=== PATIENT | female | born 1950 | race Caucasian/White ===

== ENCOUNTER 2016-10-31 12:53 | Outpatient (CLI) | payer OTHER, MEDICARE | END 2016-10-31 19:36 | disposition home or self-care (01) | LOC: SCT 12:53 | PROVIDERS: ATTEND Internal Medicine Hospice and Palliative Medicine | DX: J44.9 Chronic obstructive pulmonary disease, unspecified (principal); I25.10 Atherosclerotic heart disease of native coronary artery without angina pectoris | CPT/HCPCS: 71250-TC ==

== ENCOUNTER 2017-09-14 10:01 | Outpatient (CLI) | payer OTHER, MEDICARE ==
[2017-09-14 10:42] LABS: BASOPHILS # (AUTO) 0.1 K/uL (0.0-0.2); BASOPHILS % (AUTO) 0.5 % (0.0-2.0); EOSINOPHILS # (AUTO) 0.1 K/uL (0.0-0.4); EOSINOPHILS % (AUTO) 1.4 % (0.0-4.0); HEMATOCRIT 41.4 % (36-48); HEMOGLOBIN 13.4 g/dL (12.0-16.0); LYMPHOCYTES % (AUTO) 29.3 % (20.5-51.5); MEAN CORPUSCULAR HEMOGLOBIN 29 pg (27-31); MEAN CORPUSCULAR HGB CONC 32 % (32-36); MEAN CORPUSCULAR VOLUME 91 fL (79.0-98.0); MONOCYTES # (AUTO) 0.9 K/uL (0.0-1.0); MONOCYTES % (AUTO) 9.1 % (1.7-9.3); NEUTROPHILS # (AUTO) 6.3 K/uL (1.8-7.7); NEUTROPHILS % (AUTO) 59.7 % (40.0-70.0); PLATELET COUNT (AUTO) 379 K/uL (130-430); RED BLOOD CELL COUNT(AUTO) 4.55 MIL/uL (4.2-6.2); WHITE BLOOD COUNT (AUTO) 10.4 K/uL (4.8-10.8)
[2017-09-14 11:17] LABS: BILIRUBIN,URINE NEGATIVE (NEGATIVE); CALCIUM 10.1 mg/dL (8.4-11.0); CLARITY/URINE CLOUDY (CLEAR); COLOR,URINE YELLOW (YELLOW); CREATININE 0.87 mg/dL (0.55-1.30); GLUCOSE,URINE NEGATIVE (NEGATIVE); KETONES,URINE NEGATIVE (NEGATIVE); LEUKOCYTE ESTERASE ,URINE 3+ (NEGATIVE); NITRITE, URINE POSITIVE (NEGATIVE); PH,URINE 5.5 (5.0-8.0); POTASSIUM 4.6 mmol/L (3.5-5.1); PROTEIN URINE NEGATIVE (NEGATIVE); THYROID STIMULATING HORMONE 1.62 uIu/mL (0.34-4.82); TOTAL BILIRUBIN 0.5 mg/dL (0.0-1.0); UROBILINOGEN,URINE 0.2 (0.2-1.0)
[2017-09-14 11:18] LABS: BLOOD, URINE TRACE (NEGATIVE)
[2017-09-14 12:05] LABS: RBC,URINE 0-3 /HPF (0-3)
[2017-09-14 12:06] LABS: WBC,URINE >100 /HPF (0-3)
[2017-09-14 12:07] LABS: BACTERIA,URINE MANY /HPF (None Seen); MUCUS,URINE None Seen /LPF (None Seen)
== END 2017-09-14 20:24 | disposition home or self-care (01) ==
LOC: SLB 10:01
PROVIDERS: ATTEND Internal Medicine Hospice and Palliative Medicine
DX: I10 Essential (primary) hypertension (principal); E11.9 Type 2 diabetes mellitus without complications; R53.83 Other fatigue
CPT/HCPCS: 36415; 80053; 80061; 81000-TC; 84443-TC; 85025; 87086; 87186-TC

== ENCOUNTER 2018-04-09 07:33 | Day surgery (SDC) | payer OTHER, MEDICARE ==
[2018-04-09] MEDS ORDERED: MEPERIDINE HCL/PF 100 MG/ML AMP ONE (07:49)
[2018-04-09] MEDS: MIDAZOLAM HCL 5 MG/5 ML VIAL ONE ×4 (09:13→09:26)
[2018-04-09 13:22] VITALS: BP_SYST 157
== END 2018-04-09 10:45 | disposition home or self-care (01) ==
LOC: SDS 07:33
PROVIDERS: ATTEND Internal Medicine Gastroenterology
DX: D12.5 Benign neoplasm of sigmoid colon (principal); D12.3 Benign neoplasm of transverse colon; K57.30 Diverticulosis of large intestine without perforation or abscess without bleeding; K64.8 Other hemorrhoids; E11.42 Type 2 diabetes mellitus with diabetic polyneuropathy; Z90.710 Acquired absence of both cervix and uterus; Z90.49 Acquired absence of other specified parts of digestive tract; Z98.890 Other specified postprocedural states; Z79.84 Long term (current) use of oral hypoglycemic drugs; Z79.899 Other long term (current) drug therapy; Z88.8 Allergy status to other drugs, medicaments and biological substances
CPT/HCPCS: 45380; 45385; 88305; J2175; J2250; 45384

== ENCOUNTER 2018-06-24 09:14 | Outpatient (CLI) | payer OTHER, MEDICARE ==
[2018-06-24 10:21] LABS: BASOPHILS % (AUTO) 0.2 % (0.0-2.0); EOSINOPHILS # (AUTO) 0.2 K/uL (0.0-0.4); EOSINOPHILS % (AUTO) 1.2 % (0.0-4.0); HEMATOCRIT 42.8 % (36-48); LYMPHOCYTES # (AUTO) 2.3 K/uL (1.0-5.5); LYMPHOCYTES % (AUTO) 16.9 % (20.5-51.5); MEAN CORPUSCULAR HEMOGLOBIN 29 pg (27-31); MEAN CORPUSCULAR HGB CONC 33 % (32-36); MEAN CORPUSCULAR VOLUME 89 fL (79.0-98.0); MONOCYTES # (AUTO) 0.9 K/uL (0.0-1.0); MONOCYTES % (AUTO) 6.9 % (1.7-9.3); NEUTROPHILS # (AUTO) 10.2 K/uL (1.8-7.7); NEUTROPHILS % (AUTO) 74.8 % (40.0-70.0); PLATELET COUNT (AUTO) 566 K/uL (130-430); RED CELL DISTRIBUTION WIDTH 12.4 % (9.0-15.0); WHITE BLOOD COUNT (AUTO) 13.6 K/uL (4.8-10.8)
[2018-06-24 10:51] LABS: CALCIUM 10.6 mg/dL (8.4-11.0); CREATININE 0.87 mg/dL (0.55-1.30); POTASSIUM 4.4 mmol/L (3.5-5.1)
[2018-06-24 11:06] LABS: ALBUMIN 3.8 g/dL (3.4-4.8); THYROID STIMULATING HORMONE 1.95 uIu/mL (0.36-3.74); TOTAL BILIRUBIN 0.4 mg/dL (0.0-1.0)
== END 2018-06-24 18:24 | disposition home or self-care (01) ==
LOC: SLB 09:14
PROVIDERS: ATTEND Internal Medicine Hospice and Palliative Medicine
DX: J44.9 Chronic obstructive pulmonary disease, unspecified (principal); E11.9 Type 2 diabetes mellitus without complications
CPT/HCPCS: 36415; 80053; 80061; 83036; 84443-TC; 85025

== ENCOUNTER 2019-03-18 07:50 | Emergency (ER) | payer OTHER, MEDICARE ==
[~2019-03-18] VITALS: Ht 165.1 cm; Wt 74.8 kg
[2019-03-18 07:50] VITALS: BP_SYST 120
[2019-03-18] MEDS ORDERED: KETOROLAC TROMETHAMINE 30 MG VIAL IM ONE (08:15)
[2019-03-18] MEDS ORDERED: HYDROcodone/ACETAMIN 5-325 MG TAB (NORCO/ VICODIN) PO ONE (09:15)
[2019-03-18] MEDS ORDERED: NACL 0.9% 1,000 ML IV ONE (09:45)
[2019-03-18 09:55] LABS: BASOPHILS # (AUTO) 0.1 K/uL (0.0-0.2); BASOPHILS % (AUTO) 0.5 % (0.0-2.0); EOSINOPHILS # (AUTO) 0.3 K/uL (0.0-0.4); EOSINOPHILS % (AUTO) 2.3 % (0.0-4.0); HEMATOCRIT 33.5 % (36-48); HEMOGLOBIN 11.1 g/dL (12.0-16.0); LYMPHOCYTES # (AUTO) 2.2 K/uL (1.0-5.5); LYMPHOCYTES % (AUTO) 19.2 % (20.5-51.5); MEAN CORPUSCULAR HEMOGLOBIN 30 pg (27-31); MEAN CORPUSCULAR HGB CONC 33 % (32-36); MEAN CORPUSCULAR VOLUME 89 fL (79.0-98.0); MONOCYTES # (AUTO) 0.9 K/uL (0.0-1.0); MONOCYTES % (AUTO) 7.9 % (1.7-9.3); NEUTROPHILS % (AUTO) 70.1 % (40.0-70.0); PLATELET COUNT (AUTO) 422 K/uL (130-430); RED BLOOD CELL COUNT(AUTO) 3.75 MIL/uL (4.2-6.2); RED CELL DISTRIBUTION WIDTH 14.3 % (9.0-15.0); WHITE BLOOD COUNT (AUTO) 11.4 K/uL (4.8-10.8)
[2019-03-18 10:05] LABS: CALCIUM 10.9 mg/dL (8.4-11.0); CREATININE 0.86 mg/dL (0.55-1.30); POTASSIUM 4.9 mmol/L (3.5-5.1)
[2019-03-18 10:11] LABS: ALBUMIN 3.3 g/dL (3.4-4.8); TOTAL BILIRUBIN 0.3 mg/dL (0.0-1.0)
[2019-03-18] MEDS ORDERED: IOHEXOL 100 ML IV ONE (10:51)
[2019-03-18] MEDS ORDERED: DOXYCYCLINE HYCLATE 100 MG CAPSULE PO ONE (13:00)
[2019-03-18 13:17] VITALS: BP_SYST 138
== END 2019-03-18 13:17 | disposition home or self-care (01) ==
LOC: SED 07:50
DX: S22.068A Other fracture of T7-T8 thoracic vertebra, initial encounter for closed fracture (principal); S22.088A Other fracture of T11-T12 vertebra, initial encounter for closed fracture; S20.211A Contusion of right front wall of thorax, initial encounter; J18.9 Pneumonia, unspecified organism; R91.8 Other nonspecific abnormal finding of lung field; M19.90 Unspecified osteoarthritis, unspecified site; Z88.1 Allergy status to other antibiotic agents; Z88.8 Allergy status to other drugs, medicaments and biological substances; Z87.891 Personal history of nicotine dependence; W01.0XXA Fall on same level from slipping, tripping and stumbling without subsequent striking against object, initial encounter; Y93.89 Activity, other specified; Y92.89 Other specified places as the place of occurrence of the external cause; Y99.8 Other external cause status
CPT/HCPCS: 36415; 71100; 71260; 80053; 83605; 85025; 87040; 87086; 96372; 99284; J1885; J7030; Q9967

== ENCOUNTER 2019-04-19 13:56 | Inpatient (IN) | payer OTHER, MEDICARE ==
[~2019-04-19] VITALS: Ht 165.1 cm; Wt 73.9 kg
--- NOTE | 2019-04-19 13:59 | NUR ---
Patient to ER bed 1 to gown for evaluation. Side rails up. Report given to CARMELITA Su.
--- NOTE | 2019-04-19 14:00 | NUR ---
ER Dr. Warner at bedside examining patient.
[2019-04-19 14:02] VITALS: BP_SYST 184
[2019-04-19] MEDS ORDERED: NS 500 ML IV ONE (14:15)
[2019-04-19] MEDS ORDERED: ONDANSETRON HCL 4 MG/2 ML VIAL IVP ONE (14:15)
[2019-04-19 14:33] LABS: BASOPHILS # (AUTO) 0.1 K/uL (0.0-0.2); BASOPHILS % (AUTO) 0.4 % (0.0-2.0); EOSINOPHILS % (AUTO) 0.1 % (0.0-4.0); HEMATOCRIT 41.1 % (36-48); HEMOGLOBIN 13.7 g/dL (12.0-16.0); LYMPHOCYTES # (AUTO) 0.9 K/uL (1.0-5.5); LYMPHOCYTES % (AUTO) 5.5 % (20.5-51.5); MEAN CORPUSCULAR HEMOGLOBIN 30 pg (27-31); MEAN CORPUSCULAR HGB CONC 33 % (32-36); MEAN CORPUSCULAR VOLUME 89 fL (79.0-98.0); MONOCYTES # (AUTO) 0.4 K/uL (0.0-1.0); MONOCYTES % (AUTO) 2.6 % (1.7-9.3); NEUTROPHILS # (AUTO) 14.8 K/uL (1.8-7.7); NEUTROPHILS % (AUTO) 91.4 % (40.0-70.0); PLATELET COUNT (AUTO) 573 K/uL (130-430); RED CELL DISTRIBUTION WIDTH 14.7 % (9.0-15.0); WHITE BLOOD COUNT (AUTO) 16.2 K/uL (4.8-10.8)
[2019-04-19 14:46] LABS: CREATININE 0.88 mg/dL (0.55-1.30); POTASSIUM 3.7 mmol/L (3.5-5.1)
[2019-04-19 14:47] LABS: INR 1.1 (0.8-1.2); PROTHROMBIN TIME 10.7 SECS (9.5-12.5)
[2019-04-19 14:54] LABS: CALCIUM 12.9 mg/dL (8.4-11.0)
[2019-04-19 14:58] LABS: ALBUMIN 3.7 g/dL (3.4-4.8); TOTAL BILIRUBIN 0.5 mg/dL (0.0-1.0)
--- NOTE | 2019-04-19 15:12 | NUR ---
Patient A&Ox4. at bedside. Patient reports bilateral weakness started March 22 and continues to get worse. Patient reports she was diagnosed with lung cancer March 22. Patient has profound bilateral weakness and was not able to walk to bed.
[2019-04-19] MEDS ORDERED: VANCOMYCIN HCL 1,000 MG in D5W 250 ML IV ONE (15:45)
[2019-04-19] MEDS ORDERED: NACL 0.9% 2,000 ML IV ONE (15:45)
[2019-04-19] MEDS ORDERED: VANCOMYCIN HCL 1000 MG/VIAL IV ONE (16:09)
[2019-04-19] MEDS ORDERED: MORP30TA PO (16:25)
[2019-04-19] MEDS ORDERED: VITA1CAP PO (16:25)
[2019-04-19] MEDS ORDERED: GLUXR500 PO ×2 (16:25)
[2019-04-19] MEDS ORDERED: INSU100V9 SQ (16:25)
[2019-04-19] MEDS ORDERED: LIP10 PO (16:25)
[2019-04-19] MEDS ORDERED: NEU300 PO (16:25)
[2019-04-19] MEDS ORDERED: LISI5TAB PO (16:25)
[2019-04-19] MEDS ORDERED: ZOLP10TA2 PO (16:25)
[2019-04-19] MEDS ORDERED: HYDR-4274 PO ×3 (16:25)
[2019-04-19] MEDS ORDERED: BEN50 PO (16:25)
[2019-04-19] MEDS ORDERED: PARO-63 PO (16:25)
--- NOTE | 2019-04-19 16:25 | NUR ---
Medication reconciliation completed with information provided by . Any prior medication reconciliation on file was reviewed and corrected.
[2019-04-19 16:58] LABS: BILIRUBIN,URINE NEGATIVE (NEGATIVE); CLARITY/URINE CLEAR (CLEAR); COLOR,URINE YELLOW (YELLOW); GLUCOSE,URINE TRACE (NEGATIVE); KETONES,URINE 2+ (NEGATIVE); LEUKOCYTE ESTERASE ,URINE NEGATIVE (NEGATIVE); NITRITE, URINE NEGATIVE (NEGATIVE); PROTEIN URINE 2+ (NEGATIVE); UROBILINOGEN,URINE 0.2 (0.2-1.0)
[2019-04-19] MEDS ORDERED: ASPIRIN 325 MG TABLET PO ONE (17:00)
[2019-04-19 17:07] LABS: BLOOD, URINE TRACE (NEGATIVE)
[2019-04-19 17:15] LABS: BACTERIA,URINE FEW /HPF (None Seen); MUCUS,URINE None Seen /LPF (None Seen); WBC,URINE 0-3 /HPF (0-3)
--- NOTE | 2019-04-19 17:59 | NUR ---
Patient will be admitted to care of Dr. Cortes. Admitted to telemetry unit. Will go to room 119A. Belongings list completed. Summary report printed. Report will be given at bedside.
--- NOTE | 2019-04-19 18:05 | NUR ---
Dr. Warner made aware of patient vital signs.
[2019-04-19] MEDS ORDERED: ZOLPIDEM TARTRATE 5 MG TABLET PO PRN (18:15)
--- NOTE | 2019-04-19 18:20 | NUR ---
[facility] Licensed nurse present. IV present no signs or symptoms of infiltration. Bedside report given to CARMELITA Salvador for continuation of care.
--- NOTE | 2019-04-19 18:23 | NUR ---
Admission Note Received patient from ER with diagnosis of SEPSIS PNA. Initial Plan of Care discussed-patient verbalized understanding. Family at bedside. Oriented to room, call light, pain management and safety.
[2019-04-19 18:30] VITALS: BP_SYST 157
[2019-04-19] MEDS ORDERED: DEXTROSE 50% JECT 50 ML DISP.SYRIN IVP PRN (18:30)
[2019-04-19] MEDS ORDERED: IPRATROPIUM/ALBUTEROL SULFATE 3 ML AMPUL.NEB (DUONEB) INH PRN (18:30)
[2019-04-19 19:05] VITALS: BP_SYST 157
--- NOTE | 2019-04-19 19:10 | NUR ---
CLOSING NOTES PT STABLE DENIES ANY PAIN OR SOB AT THIS TIME. PT CLEANED AND KEPT COMFORTABLE. SAFETY AND FALL PRECAUTIONS MAINATINED.NOT IN ACUTE DISTRESS. REPORT GIVEN TO EUGENE MAE
[2019-04-19] MEDS ORDERED: AZTREONAM 1 GM in NS 50 ML IV ONE ×2 (19:15→20:00)
[2019-04-19 20:00] VITALS: BP_SYST 158
--- NOTE | 2019-04-19 20:00 | NUR ---
MD Dr. Cortes at patient's bedside, new orders received, will carry out. Patient updated on plan of care, verbalized understanding.
[2019-04-19] MEDS: IPRATROPIUM/ALBUTEROL SULFATE 3 ML AMPUL.NEB (DUONEB) INH SCH (20:03)
[2019-04-19] MEDS: NACL 0.9% 1,000 ML IV SCH (20:26)
[2019-04-19] MEDS: POTASSIUM CHLORIDE 10 MEQ TAB.PRT.SR PO SCH (20:27)
[2019-04-19] MEDS: FUROSEMIDE 20 MG/2 ML VIAL IVP SCH (20:27)
--- NOTE | 2019-04-19 20:29 | NUR ---
CONSULT: CONSULT CALLED FOR DR. SNEHA NOGUEIRA CLEARING HOUSE CLERK FOR DR. HOOVER I SPOKE WITH DIANA EXCHANGE REASON FOR CONSULT" LUNG MASS REQUESTING CONSULT: DR. MILLER FERMENTATION ENGINEER PHONE NUMBER: [phone]
[2019-04-19] MEDS ORDERED: AZTREONAM 1 GM VIAL ONE (20:32)
--- NOTE | 2019-04-19 20:33 | NUR ---
CONSULT: CONSULT CALLED FOR DR. CURRAN I SPOKE WITH DIANA GUERIN REASON FOR CONSULT: PNA REQUESTING CONSULT: DR. MILLER CRYSTAL CALIBRATOR PHONE NUMBER: [phone]
--- NOTE | 2019-04-19 20:34 | NUR ---
CONSULT: CONSULT CALLED FOR DR. GERRY TSANG IS ELECTRONIC PAGINATION SYSTEM OPERATOR FOR DR. REYES REASON FOR CONSULT: CANCER REQUESTING CONSULT: DR. MILLER SENIOR ORACLE SOA DEVELOPER PHONE NUMBER: [phone]
--- NOTE | 2019-04-19 21:03 | NUR ---
MED PASS Patient started on IVF and antibiotics per MD order, IV line to left ac intact and patent, no signs of infiltration noted, due medications administered, educated on used of each medications, patient verbalized understanding, aspiration precautions maintained, blood sugar check, 195, no insulin coverage noted.
[2019-04-20] VITALS: BP_SYST 154
--- NOTE | 2019-04-20 00:49 | NUR ---
RN Rounds Pt in bed asleep, no s/s of distress noted. Breaths sounds even and unlabored. Pt turned and repositioned. VSS. Will continue to monitor.
[2019-04-20] MEDS: IPRATROPIUM/ALBUTEROL SULFATE 3 ML AMPUL.NEB (DUONEB) INH SCH ×4 (00:58→19:30)
--- NOTE | 2019-04-20 03:02 | NUR ---
RN Rounds Pt in bed asleep, no s/s of distress noted. Breaths sounds even and unlabored. Will continue to monitor.
[2019-04-20] MEDS: AZTREONAM 1 GM in NS 50 ML IV SCH ×3 (03:13→20:48)
[2019-04-20] MEDS: NACL 0.9% 1,000 ML IV SCH ×3 (06:02→21:57)
--- NOTE | 2019-04-20 06:19 | NUR ---
Closing Note Pt in bed asleep. No s/s of distress noted. Pt IV sites C/D/I. IVF infusing. Skin intact. BS check done, no coverage needed. Will endorse to oncoming RN.
[2019-04-20 06:54] LABS: BASOPHILS % (AUTO) 0.3 % (0.0-2.0); EOSINOPHILS % (AUTO) 0.3 % (0.0-4.0); HEMATOCRIT 34.3 % (36-48); HEMOGLOBIN 11.5 g/dL (12.0-16.0); LYMPHOCYTES # (AUTO) 1.8 K/uL (1.0-5.5); LYMPHOCYTES % (AUTO) 12.6 % (20.5-51.5); MEAN CORPUSCULAR HEMOGLOBIN 30 pg (27-31); MEAN CORPUSCULAR HGB CONC 33 % (32-36); MEAN CORPUSCULAR VOLUME 89 fL (79.0-98.0); MONOCYTES # (AUTO) 1.3 K/uL (0.0-1.0); MONOCYTES % (AUTO) 9.2 % (1.7-9.3); NEUTROPHILS % (AUTO) 77.6 % (40.0-70.0); PLATELET COUNT (AUTO) 484 K/uL (130-430); RED BLOOD CELL COUNT(AUTO) 3.84 MIL/uL (4.2-6.2); RED CELL DISTRIBUTION WIDTH 14.8 % (9.0-15.0); WHITE BLOOD COUNT (AUTO) 14.2 K/uL (4.8-10.8)
[2019-04-20 07:20] LABS: ALBUMIN 2.9 g/dL (3.4-4.8); CALCIUM 10.2 mg/dL (8.4-11.0); CREATININE 0.85 mg/dL (0.55-1.30); FREE T4 (FREE THYROXINE) 1.1 ng/dl (0.8-1.5); POTASSIUM 3.4 mmol/L (3.5-5.1); TOTAL BILIRUBIN 0.3 mg/dL (0.0-1.0)
--- NOTE | 2019-04-20 07:36 | NUR ---
Opening Note bedside SBAR report received from electric motor tester RN, patient resting in bed, no acute distress noted, respirations even and unlabored on room air, no acute distress noted, patient reports pain is controlled, educated patient on use of call light and asked to call for assistance, patient verbalized understanding, call light in reach, bed in low and locked position, bed alarm on.
[2019-04-20 08:00] VITALS: BP_SYST 173
--- NOTE | 2019-04-20 08:30 | NUR ---
Physician Rounds Dr. Nelson at bedside examining patient.
--- NOTE | 2019-04-20 08:40 | NUR ---
Nutrition Update Foster Scale 14 noted. Pt admitted for sepsis, pneumonia. Diet: mechanical soft, CCHO low carb-45 gm BMI: 27.3 kg/m2 RD to follow per nutrition care standards.
[2019-04-20] MEDS ORDERED: metFORMIN HCL 500 MG TABLET PO SCH ×2 (09:00→18:00)
[2019-04-20] MEDS ORDERED: MORPHINE SULFATE 15 MG TABLET.ER PO SCH (09:00)
[2019-04-20] MEDS: DIPHENHYDRAMINE HCL 50 MG CAPSULE PO SCH ×3 (09:46→20:49)
[2019-04-20] MEDS: VITAMIN B COMPLEX 1 CAP/TAB PO SCH (09:46)
[2019-04-20] MEDS: GABAPENTIN 300 MG CAPSULE PO SCH ×4 (09:46→20:48)
[2019-04-20] MEDS: PARoxetine HCL 20 MG TABLET PO SCH (09:46)
[2019-04-20] MEDS: POTASSIUM CHLORIDE 10 MEQ TAB.PRT.SR PO SCH ×2 (09:46→20:49)
[2019-04-20] MEDS: FUROSEMIDE 20 MG/2 ML VIAL IVP SCH ×2 (09:47→22:01)
[2019-04-20] MEDS: MORPHINE 4 MG/ML INJ. SYRINGE IVP PRN ×2 (09:48→15:09)
--- NOTE | 2019-04-20 11:01 | NUR ---
Physician Rounds Dr. Kitchen at bedside examining patient.
[2019-04-20 11:20] VITALS: BP_SYST 134
--- NOTE | 2019-04-20 11:20 | NUR ---
to CT patient taken to CT scan via gurney, no acute distress noted.
[2019-04-20] MEDS ORDERED: IOHEXOL 100 ML IV ONE (11:28)
--- NOTE | 2019-04-20 11:38 | NUR ---
back from CT patient brought back to bed via gurney from CT, no acute distress noted, patients at bedside.
[2019-04-20] MEDS: ATORVASTATIN 10 MG TABLET PO SCH (11:56)
[2019-04-20] MEDS: LISINOPRIL 5 MG TABLET PO SCH (11:56)
[2019-04-20] MEDS: INSULIN REGULAR, HUMAN 100 UNITS/ML, 10 ML VIAL (humuLIN R) SUBCUT PRN ×3 (12:11→22:05)
--- NOTE | 2019-04-20 13:53 | NUR ---
Physician Rounds Dr. Quiroz at bedside examining patient.
--- NOTE | 2019-04-20 14:00 | NUR ---
SS Note: LADIES LOCKER ROOM ATTENDANT was referred to meet with patient for assessment. LADIES LOCKER ROOM ATTENDANT met with patient, spouse and sister at bedside. Demographic information verified and updated. Pt was asleep during the encounter but would wake up to answer some questions. Per spouse, pt fell at home in the end of February and brought her to [facility] for a chest x-ray, but a mass was found. PCP referred pt to [facility] and was diagnosed with lung cancer in 2018. Since then, pt has been weak and has difficulty walking prompting the spouse to bring patient to the ED. Spouse stated that since the patient has been here in the hospital, she has regained some of her strength. Per , she is now able to raise her arm, more alert/responsive and is breathing better. Pt lives in a mobile home with spouse and has 7 steps to get to the front door, but has an elevator as an alternative. Pt owns crutches, canes, walker and wheelchair. Pt is semi dependent with ADL's; assistance from with bathing, feeding, toileting and ambulating. Pt identifies as his support system. Pt has an advanced directive and spouse is the surrogate decision maker. At this point, there is no DCP but is willing to utilize a SNF closest to home ([facility] notified). LADIES LOCKER ROOM ATTENDANT provided pt with SNF list and will remain available when needed.
--- NOTE | 2019-04-20 14:29 | NUR ---
Dietitian Recommendations * Recommend [facility] standard carb-60 gm, mechanical soft diet w/ Glucerna TID (provides additional 660 kcal/day and 30 gm of protein/day) * Encourage PO intake. SHON, RD Please refer to Nutrition Assessment for details. Signed: 04/20/19 at 1431 by aSrai AMBRIZ <Co-Signature Required> Co-Signed: 04/20/19 at [address] Addendum: 04/20/19 at 1431 by Sarai AMBRIZ Amended: Links added.
[2019-04-20] MEDS: VANCOMYCIN HCL 1,000 MG in NS 250 ML IV SCH (14:58)
[2019-04-20 15:34] VITALS: BP_SYST 175
--- NOTE | 2019-04-20 15:55 | NUR ---
RN Rounds patient resting in bed, patient reports pain is controlled at this time, no acute distress noted, IV infusing well, no redness or swelling noted at IV site.
[2019-04-20] MEDS: MICAFUNGIN SODIUM 100 MG in NS 100 ML IV SCH (16:09)
[2019-04-20 16:19] VITALS: BP_SYST 141
--- NOTE | 2019-04-20 18:05 | NUR ---
Dinner assisted patient to eat dinner, patient ate 50% of dinner, patient states that she would like to take a break and will try to eat more later, no acute distress noted.
--- NOTE | 2019-04-20 19:15 | NUR ---
Closing Note bedside SBAR report given to receiving RN, patient resting in bed, no acute distress noted, respirations even and unlabored on room air, no acute distress noted, educated patient on use of call light and asked to call for assistance, patient verbalized understanding, call light in reach, bed in low and locked position, bed alarm on, care endorsed to picture engraver RN.
--- NOTE | 2019-04-20 19:20 | NUR ---
Opening note Patient resting w/eyes closed, no s/sx of distress. Nonlabored breathing on room air. IVF infusing via IV to LAC. Bed is locked in lowest position, bed alarm on, side rails up 3x, and call light w/in reach.
--- NOTE | 2019-04-20 19:30 | NUR ---
Dr. Sebastian Cortes at bedside to see patient
--- NOTE | 2019-04-20 19:36 | NUR ---
RT RT is providing breathing treatment.
[2019-04-20 20:00] VITALS: BP_SYST 164
[2019-04-20] MEDS ORDERED: cloNIDine HCL 0.1 MG TABLET PO SCH (20:30)
--- NOTE | 2019-04-20 22:50 | NUR ---
In + Out Lepe In and Out Lepe catheter was inserted with use of sterile technique. Immediate return of clear yellow urine noted. Urine sample collected and sent to lab at 2306. Pt tolerated procedure.
--- NOTE | 2019-04-20 23:15 | NUR ---
Elevated Blood pressure B/P 176/74; administered catapress prn as ordered. Axillary temp is 99.5 and provided with cooling measures. Will continue to monitor.
[2019-04-20] MEDS: cloNIDine HCL 0.1 MG TABLET PO PRN (23:17)
[2019-04-21 00:10] VITALS: BP_SYST 154
--- NOTE | 2019-04-21 00:43 | NUR ---
Reassess B/P, temp Blood pressure decreased to 154/81, HR 82, Temp taken with temporal scan is 97.6. Will continue to monitor.
[2019-04-21] MEDS: IPRATROPIUM/ALBUTEROL SULFATE 3 ML AMPUL.NEB (DUONEB) INH SCH ×4 (01:00→20:48)
--- NOTE | 2019-04-21 02:15 | NUR ---
RN rounds Patient's blood pressure presently 154/66, HR 81. She was repositioned for comfort. IVF infusing well. Safety precautions maintained and call light w/in reach.
[2019-04-21 04:27] VITALS: BP_SYST 149
--- NOTE | 2019-04-21 04:30 | NUR ---
RN rounds Patient resting in comfortable position, no s/sx of distress. B/P is 149/95, HR 84. Repositioned for comfort. IVF infusing well, safety precautions maintained and call light w/in reach.
[2019-04-21] MEDS: AZTREONAM 1 GM in NS 50 ML IV SCH ×3 (05:32→21:57)
--- NOTE | 2019-04-21 05:59 | NUR ---
lab draw food equipment service technician at bedside for blood draw.
[2019-04-21 06:29] LABS: BASOPHILS # (AUTO) 0.1 K/uL (0.0-0.2); BASOPHILS % (AUTO) 0.4 % (0.0-2.0); EOSINOPHILS # (AUTO) 0.1 K/uL (0.0-0.4); EOSINOPHILS % (AUTO) 0.7 % (0.0-4.0); HEMATOCRIT 34.2 % (36-48); HEMOGLOBIN 11.5 g/dL (12.0-16.0); LYMPHOCYTES # (AUTO) 1.7 K/uL (1.0-5.5); LYMPHOCYTES % (AUTO) 12.8 % (20.5-51.5); MEAN CORPUSCULAR HEMOGLOBIN 30 pg (27-31); MEAN CORPUSCULAR HGB CONC 34 % (32-36); MEAN CORPUSCULAR VOLUME 88 fL (79.0-98.0); MONOCYTES # (AUTO) 1.2 K/uL (0.0-1.0); MONOCYTES % (AUTO) 8.8 % (1.7-9.3); NEUTROPHILS # (AUTO) 10.4 K/uL (1.8-7.7); NEUTROPHILS % (AUTO) 77.3 % (40.0-70.0); PLATELET COUNT (AUTO) 485 K/uL (130-430); RED BLOOD CELL COUNT(AUTO) 3.87 MIL/uL (4.2-6.2); RED CELL DISTRIBUTION WIDTH 14.6 % (9.0-15.0); WHITE BLOOD COUNT (AUTO) 13.5 K/uL (4.8-10.8)
--- NOTE | 2019-04-21 06:47 | NUR ---
Closing Note Patient resting in comfortable position w/eyes closed, no s/sx of distress. Nonlabored breathing on room air. IVF infusing via IV to LAC. Bed is locked in lowest position, bed alarm on, side rails up 3x, and call light w/in reach. Fingerstick BGT done w/ result of 192 mg/dL and no coverage due per sliding scale order. Needs met throughout shift, will endorse care.
[2019-04-21 06:54] LABS: ALBUMIN 2.9 g/dL (3.4-4.8); CALCIUM 9.8 mg/dL (8.4-11.0); CREATININE 0.81 mg/dL (0.55-1.30); POTASSIUM 3.1 mmol/L (3.5-5.1); TOTAL BILIRUBIN 0.4 mg/dL (0.0-1.0)
--- NOTE | 2019-04-21 07:19 | NUR ---
Opening Note received bedside SBAR report from retail shift manager RN, patient resting in bed, respirations even and unlabored on room air, no acute distress noted, educated patient on use of call light and asked to call for assistance, patient verbalized understanding, call light in reach, bed in low and locked position, bed alarm on.
[2019-04-21 08:00] VITALS: BP_SYST 160
[2019-04-21] MEDS: DIPHENHYDRAMINE HCL 50 MG CAPSULE PO SCH ×3 (08:28→21:57)
[2019-04-21] MEDS: PARoxetine HCL 20 MG TABLET PO SCH (08:28)
[2019-04-21] MEDS: FUROSEMIDE 20 MG/2 ML VIAL IVP SCH ×2 (08:29→21:57)
[2019-04-21] MEDS: GABAPENTIN 300 MG CAPSULE PO SCH ×4 (08:29→21:57)
[2019-04-21] MEDS: POTASSIUM CHLORIDE 10 MEQ TAB.PRT.SR PO SCH (08:29)
[2019-04-21] MEDS: NACL 0.9% 1,000 ML IV SCH (08:40)
[2019-04-21] MEDS: ONDANSETRON HCL 4 MG/2 ML VIAL IVP PRN (08:53)
--- NOTE | 2019-04-21 09:00 | NUR ---
Medication/Emesis patient had emesis x1, patient given bed bath and linen and gown changed, assisted patient to reposition, HOB elevated 45 degrees, patient requesting PRN medication for nausea, educated patient on use and side effects of zofran, patient verbalized understanding, tolerated medication administration well, no acute distress noted, patients at bedside.
--- NOTE | 2019-04-21 09:13 | NUR ---
Spoke with Physician Spoke with Dr. Cortes, informed him that patient is requesting to have norco pain medication instead of morphine, new medication orders received, verified with read back.
[2019-04-21] MEDS: VITAMIN B COMPLEX 1 CAP/TAB PO SCH (09:53)
[2019-04-21] MEDS: HYDROcodone/ACETAMIN 10-325 MG TAB PO PRN ×3 (09:54→18:24)
[2019-04-21] MEDS ORDERED: POTASSIUM CHLORIDE 40 MEQ in 0.45% NS 250 ML IV ONE (10:00)
[2019-04-21 10:14] LABS: VANCOMYCIN,TROUGH 7.2 ug/mL (5.0-10.0)
--- NOTE | 2019-04-21 10:27 | NUR ---
Physician Rounds Dr. Nelson at bedside examining patient and speaking with patient and patients .
[2019-04-21] MEDS: ATORVASTATIN 10 MG TABLET PO SCH (11:51)
[2019-04-21] MEDS: LISINOPRIL 5 MG TABLET PO SCH (11:53)
[2019-04-21] MEDS: INSULIN REGULAR, HUMAN 100 UNITS/ML, 10 ML VIAL (humuLIN R) SUBCUT PRN ×3 (11:56→22:00)
--- NOTE | 2019-04-21 12:07 | NUR ---
Physician Rounds Dr. Cortes at bedside examining patient, informed Dr. Cortes that patient has not yet produced sputum sample, okay per Dr. Cortes.
[2019-04-21] MEDS ORDERED: POTASSIUM CHLORIDE 20 MEQ TAB.PRT.SR PO ONE (12:30)
[2019-04-21 12:40] VITALS: BP_SYST 158
--- NOTE | 2019-04-21 12:57 | NUR ---
Physical Therapy physical therapy at bedside working with patient, patient tolerating well, patients at bedside.
--- NOTE | 2019-04-21 13:28 | NUR ---
DC PLANNING: CM SPOKE WITH PATIENT AND PATIENT'S AT BEDSIDE REGARDING DC PLANNING TO SNF. PATIENT AND PATIENT'S PREFERS SNF AROUND [place], [place]. CM PROVIDED LIST OF PREFERRED SNF. CM ALSO PROVIDED SOME BROCHURE TO AND ADVICE TO CHECK OUT FACILITIES AND LET CM KNOW WHICH ONE IS PREFERRED. CM TO FOLLOW UP WITH PATIENT'S LATER TODAY. Addendum: 04/21/19 at 1618 by Connie Benitez RN CM CONTACTED PATIENT'S (ART) TO FOLLOW UP ON PREFERRED SNF. PER ART, HE PREFERS [facility] SNF. WANTS TO MAKE SURE PATIENT WILL STILL BE ABLE TO RECEIVE TREATMENT AT [facility]. NEXT APPOINTMENT IS NEXT Thursday04/26/2019. ALSO, WANTS TO KNOW IF SNF CAN SETUP TRANSPORTATION FOR THE APPOINTMENT. CM CONTACTED [facility] AND SPOKE WITH RIDGE (SECURITIES SUPERVISOR), WHO REQUEST CLINICAL AND WILL BE REVIEWING PATIENT'S CASE. WILL LET CM KNOW. CM TO FOLLOW UP NEEDED.
[2019-04-21] MEDS: MICAFUNGIN SODIUM 100 MG in NS 100 ML IV SCH (14:03)
--- NOTE | 2019-04-21 14:10 | NUR ---
Spoke with Physician Spoke with Dr. Cortes, informed him of potassium replacement PO and IV that patient has received today, new orders received, verified with read back.
--- NOTE | 2019-04-21 14:44 | NUR ---
Oral Care assisted patient with oral care, patient tolerated well, patient resting in bed.
[2019-04-21] MEDS: VANCOMYCIN HCL 1,000 MG in NS 250 ML IV SCH (15:47)
--- NOTE | 2019-04-21 16:16 | NUR ---
RN Rounds patient resting in bed, respirations even and unlabored on room air, patient reports pain is controlled at this time, IV fluid infusing well, no redness or swelling noted at IV site.
--- NOTE | 2019-04-21 16:19 | NUR ---
Discharge Planning: DCP faxed referral to [facility] (f [phone] p [phone])DCP to follow up
[2019-04-21 17:31] VITALS: BP_SYST 148
--- NOTE | 2019-04-21 18:16 | NUR ---
RN Rounds patient sitting up in bed eating dinner, tolerating well, patient denies any nausea or vomiting.
--- NOTE | 2019-04-21 19:30 | NUR ---
Closing Note bedside SBAR report given to receiving RN, patient resting in bed, no acute distress noted, patient reports pain is controlled, educated patient on use of call light and asked to call for assistance, patient verbalized understanding, call light in reach, bed in low and locked position, bed alarm on, care endorsed to bisque finisher RN.
[2019-04-21 20:20] VITALS: BP_SYST 147
[2019-04-21] MEDS: POTASSIUM CHLORIDE 20 MEQ TAB.PRT.SR PO SCH (21:57)
--- NOTE | 2019-04-21 22:15 | NUR ---
BLOOD SUGAR BSG @ [address] two units of Regular INSULIN SUB Q. administer per sliding scale skin dry warm position change tolerated .
--- NOTE | 2019-04-22 | NUR ---
BENADRYL 50 MG PO administer for ITCHING & HELPFUL .
--- NOTE | 2019-04-22 00:13 | NUR ---
Hourly Rounding patient awake on & off HOB elevated SAFETY MEASURES implemented patient verbally Responsive FALL PRECAUTION EFFECTIVE .
--- NOTE | 2019-04-22 00:55 | NUR ---
AMBIEN 10 MG PO administer FOR SLEEP AIDE & HELPFUL Patient Resting call chapin with patient .
[2019-04-22 01:03] VITALS: BP_SYST 156
--- NOTE | 2019-04-22 01:19 | NUR ---
Reposition & Turning patient off loading with pillows on schedule kept clean & dry as needed position change tolerated .
[2019-04-22] MEDS: IPRATROPIUM/ALBUTEROL SULFATE 3 ML AMPUL.NEB (DUONEB) INH SCH ×4 (01:54→21:05)
[2019-04-22] MEDS: AZTREONAM 1 GM in NS 50 ML IV SCH ×3 (04:55→20:28)
[2019-04-22] MEDS: NACL 0.9% 1,000 ML IV SCH (04:55)
--- NOTE | 2019-04-22 05:36 | NUR ---
Bed Bath given patient incontinent of B & B off loading with pillows comfort measures implemented tolerated no acute distress / .
[2019-04-22] MEDS: INSULIN REGULAR, HUMAN 100 UNITS/ML, 10 ML VIAL (humuLIN R) SUBCUT PRN ×3 (06:34→16:46)
[2019-04-22 06:37] LABS: BASOPHILS # (AUTO) 0.1 K/uL (0.0-0.2); BASOPHILS % (AUTO) 0.5 % (0.0-2.0); EOSINOPHILS # (AUTO) 0.1 K/uL (0.0-0.4); EOSINOPHILS % (AUTO) 0.6 % (0.0-4.0); HEMATOCRIT 35.2 % (36-48); HEMOGLOBIN 11.8 g/dL (12.0-16.0); LYMPHOCYTES # (AUTO) 1.6 K/uL (1.0-5.5); MEAN CORPUSCULAR HEMOGLOBIN 30 pg (27-31); MEAN CORPUSCULAR HGB CONC 33 % (32-36); MEAN CORPUSCULAR VOLUME 89 fL (79.0-98.0); MONOCYTES % (AUTO) 7.8 % (1.7-9.3); NEUTROPHILS # (AUTO) 10.4 K/uL (1.8-7.7); NEUTROPHILS % (AUTO) 79.1 % (40.0-70.0); PLATELET COUNT (AUTO) 541 K/uL (130-430); RED BLOOD CELL COUNT(AUTO) 3.98 MIL/uL (4.2-6.2); WHITE BLOOD COUNT (AUTO) 13.2 K/uL (4.8-10.8)
[2019-04-22 06:39] LABS: CALCIUM 9.7 mg/dL (8.4-11.0); CREATININE 0.72 mg/dL (0.55-1.30); POTASSIUM 3.3 mmol/L (3.5-5.1)
[2019-04-22 07:38] VITALS: BP_SYST 164
[2019-04-22 08:02] VITALS: BP_SYST 164
[2019-04-22] MEDS: ONDANSETRON HCL 4 MG/2 ML VIAL IVP PRN ×2 (08:23→16:51)
--- NOTE | 2019-04-22 09:18 | NUR ---
DR MILLER HERE , INFORMED MD THAT PT VOMITED EVEN AFTER ZOFRAN WAS GIVEN. SAID HE WILL ORDER SOMETHING.
[2019-04-22] MEDS ORDERED: METOCLOPRAMIDE HCL 10 MG/2 ML VIAL IVP ONE (09:30)
[2019-04-22] MEDS ORDERED: LACTULOSE 20 GM/30 ML UDC PO ONE (09:30)
[2019-04-22] MEDS ORDERED: METOCLOPRAMIDE HCL 10 MG/2 ML VIAL IVP PRN (09:30)
--- NOTE | 2019-04-22 10:38 | NUR ---
PT note Patient family requesting to hold therapy for today; nursing made aware.
[2019-04-22] MEDS: GABAPENTIN 300 MG CAPSULE PO SCH ×4 (10:42→20:30)
[2019-04-22] MEDS: PARoxetine HCL 20 MG TABLET PO SCH (10:43)
[2019-04-22] MEDS: POTASSIUM CHLORIDE 20 MEQ TAB.PRT.SR PO SCH ×2 (10:44→20:30)
[2019-04-22] MEDS: DIPHENHYDRAMINE HCL 50 MG CAPSULE PO SCH ×3 (10:44→20:29)
[2019-04-22] MEDS: FUROSEMIDE 20 MG/2 ML VIAL IVP SCH ×2 (10:45→20:29)
[2019-04-22] MEDS: VITAMIN B COMPLEX 1 CAP/TAB PO SCH (10:48)
[2019-04-22 11:27] VITALS: BP_SYST 164
--- NOTE | 2019-04-22 12:00 | NUR ---
Discharge Planning: DCP faxed referral to [facility] p [phone]) DCP to follow up Addendum: 04/22/19 at 1416 by Tana Kelly DP [facility] ( [phone] p [phone]) Rm 112B pt accepted. Addendum: 04/22/19 at 1520 by Tana Kelly DP DCP arranged for transportation with [facility] ([phone]) Will Call to [facility] ( [phone] p [phone]) Rm 112B. Patient packet taken to nurse station and nurse made aware.
[2019-04-22] MEDS: metroNIDAZOLE 500 mg/NS 100 ML IV SCH (12:28)
[2019-04-22] MEDS: LISINOPRIL 5 MG TABLET PO SCH (12:28)
[2019-04-22] MEDS: ATORVASTATIN 10 MG TABLET PO SCH (12:28)
[2019-04-22] MEDS: HYDROcodone/ACETAMIN 10-325 MG TAB PO PRN (12:32)
--- NOTE | 2019-04-22 15:16 | NUR ---
PT KEPT NPO FOR SMALL BOWEL FOLLOW THRU ORDERED BY DR MILLER. RADIOLOGY MADE AWARE.
[2019-04-22 15:42] VITALS: BP_SYST 163
[2019-04-22] MEDS ORDERED: GASTROGRAFIN 120 ML ONE (15:59)
[2019-04-22] MEDS: cloNIDine HCL 0.1 MG TABLET PO PRN (16:41)
--- NOTE | 2019-04-22 19:54 | NUR ---
CLOSING NOTES, PT ENDORSED TO NIGHT RN. PT HAS EPISODES OF N/VOMITING , WAS GIVEN PAIN MED AND NAUSEA MEDS. PT KEPT NPO FROM LUNCH TIL NOW FOR SMALL BOWEL FOLLOW THRU STUDIES, SPOKE WITH HEIDY OF RADIOLOGY AND HE SAID HE STILL HAS ONE SHOT TO DO, REQUESTED HIM TO TELL THE NIGHT NURSE WHEN PT IS DONE AND IF WE CAN FEED PT ALREADY.
[2019-04-22 20:00] VITALS: BP_SYST 146
--- NOTE | 2019-04-22 20:00 | NUR ---
ASSUMED CARE. RECEIVED ALERT,ORIENTED,ABLE TO MAKE NEEDS KNOWN. AFEBRILE, NOT IN ACUTE DISTRESS. NO PAIN OR DISCOMFORT NOTED. WITH IV FLUID NS INFUSING AT 30 ML/HR VIA RIGHT FOREARM #22 IV LINE. SAO2=94% ON ROOM AIR. VS STABLE, WILL CONTINUE TO MONITOR. NEEDS ATTENDED.
--- NOTE | 2019-04-22 20:02 | NUR ---
MARKETING DATABASE ANALYST AT BEDSIDE TO SHOOT MORE IMAGES FOR SMALL BOWEL FOLLOW THROUGH.
[2019-04-22] MEDS: LACTULOSE 20 GM/30 ML UDC PO SCH (20:30)
--- NOTE | 2019-04-22 20:31 | NUR ---
PER FLOOR AND WALL APPLIER LIQUID. MEDS WITH SMALL AMOUNT OF WATER MAY BE GIVEN BUT NOT MEALS. DUE MEDICATIONS GIVEN. FINGERSTICK BLOOD SUGAR SVWVY=[id number]. NO INSULIN COVERAGE GIVEN DUE TO NPO FOR SBFT. WILL RECHECK IN AM.
[2019-04-22 21:06] LABS: MYCOPLASMA PNEUMONIAE IgM <770 U/mL (0-769)
--- NOTE | 2019-04-22 22:02 | NUR ---
DBA AT BEDSIDE AGAIN TO SHOOT MORE IMAGES FOR SBFT. MORE IMAGES TO BE SHOT IN AM.
--- NOTE | 2019-04-23 | NUR ---
RESTING IN BED, NOT IN ANY KIND OF DISTRESS. NO PAIN OR DISCOMFORT NOTED. SAO2 DROPPING TO 89-91% WHEN SLEEPING. PLACED BACK ON O2 @ 2 LPM VIA NC. SAO2 IMPROVED TO 100% ON OXYGEN. OTHER VS ARE WITHIN NORMAL LIMITS. SIDE RAILS UP,CALL LIGHT WITHIN REACH. KEPT WARM AND COMFORTABLE. WILL CONTINUE TO MONITOR.
[2019-04-23 00:01] VITALS: BP_SYST 126
[2019-04-23] MEDS: metroNIDAZOLE 500 mg/NS 100 ML IV SCH ×2 (01:05→11:42)
[2019-04-23] MEDS ORDERED: D5W 1,000 ML IV PRN (01:47)
[2019-04-23] MEDS ORDERED: ZOLPIDEM TARTRATE 5 MG TABLET PO PRN (02:00)
[2019-04-23] MEDS ORDERED: IPRATROPIUM/ALBUTEROL SULFATE 3 ML AMPUL.NEB (DUONEB) INH PRN (02:00)
[2019-04-23] MEDS ORDERED: DEXTROSE 50% JECT 50 ML DISP.SYRIN IVP PRN (02:00)
[2019-04-23] MEDS ORDERED: NACL 0.9% 1,000 ML IV SCH (02:00)
[2019-04-23] MEDS ORDERED: cloNIDine HCL 0.1 MG TABLET PO PRN (02:00)
[2019-04-23] MEDS ORDERED: ONDANSETRON HCL 4 MG/2 ML VIAL IVP PRN (02:00)
[2019-04-23] MEDS ORDERED: GLUCOSE 15 GM GEL (in 37.5 GM TUBE) PO PRN (02:00)
[2019-04-23] MEDS ORDERED: METOCLOPRAMIDE HCL 10 MG/2 ML VIAL IVP PRN (02:00)
[2019-04-23] MEDS ORDERED: IPRATROPIUM/ALBUTEROL SULFATE 3 ML AMPUL.NEB (DUONEB) ONE (02:24)
--- NOTE | 2019-04-23 03:54 | NUR ---
COMPLAINED OF NAUSEA. PER AM RN, ZOFRAN 4 MG IVP INEFFECTIVE. REGLAN 10 MG IVP GIVEN INSTEAD. WILL MONITOR.
[2019-04-23] MEDS: AZTREONAM 1 GM in NS 50 ML IV SCH ×2 (06:06→13:39)
--- NOTE | 2019-04-23 06:43 | NUR ---
FINGERSTICK BLOOD SUGAR OQWFL=149. NO INSULIN COVERAGE GIVEN DUE TO PT.NOT ALLOWED TO EAT.
[2019-04-23] MEDS: HYDROcodone/ACETAMIN 10-325 MG TAB PO PRN ×3 (06:52→16:13)
--- NOTE | 2019-04-23 06:52 | NUR ---
COMPLAINED OF BACK PAIN. NORCO 10/325 MG PO GIVEN ORDERED.
[2019-04-23] MEDS: IPRATROPIUM/ALBUTEROL SULFATE 3 ML AMPUL.NEB (DUONEB) INH SCH ×2 (07:10→12:00)
--- NOTE | 2019-04-23 07:20 | NUR ---
ENDORSED CARE TO NAJMA RN STABLE.
--- NOTE | 2019-04-23 07:30 | NUR ---
Opening note patient resting in bed at this time, A/Ox4, no SOB. No complaints of pain. IV patent, intact, and infusing fluids as ordered. no adverse side effects noted. Patient NPO at this time, awaiting Small bowel follow through clearance. Called radiology department left message. on safety and aspiration precautions, HOB kept elevated 3 side rails up, call light within reach. bed alarm on. Patient in stable condition. Will continue to monitor.
[2019-04-23 08:04] VITALS: BP_SYST 154
[2019-04-23] MEDS: GABAPENTIN 300 MG CAPSULE PO SCH ×3 (08:19→16:12)
[2019-04-23] MEDS: DIPHENHYDRAMINE HCL 50 MG CAPSULE PO SCH ×2 (08:19→16:12)
[2019-04-23] MEDS: FUROSEMIDE 20 MG/2 ML VIAL IVP SCH ×2 (08:21→17:40)
[2019-04-23] MEDS: LACTULOSE 20 GM/30 ML UDC PO SCH (08:24)
[2019-04-23] MEDS: INSULIN REGULAR, HUMAN 100 UNITS/ML, 10 ML VIAL (humuLIN R) SUBCUT PRN ×3 (08:30→17:39)
--- NOTE | 2019-04-23 08:30 | NUR ---
breakfast/ Accu check Patient resting in bed at this time. Radiology department called back, Okay for patient to eat. No insulin given by spiral machine operator Due to patient was NPO. Blood sugar checked, insulin given as ordered. breakfast tray given to patient. Tolerating well. No nausea, no vomiting.
[2019-04-23] MEDS ORDERED: VITAMIN B COMPLEX 1 CAP/TAB PO SCH (09:00)
[2019-04-23] MEDS ORDERED: LISINOPRIL 5 MG TABLET PO SCH (09:00)
[2019-04-23] MEDS ORDERED: POTASSIUM CHLORIDE 20 MEQ TAB.PRT.SR PO SCH (09:00)
[2019-04-23] MEDS ORDERED: PARoxetine HCL 20 MG TABLET PO SCH (09:00)
[2019-04-23] MEDS: metFORMIN HCL 500 MG TABLET PO SCH ×3 (09:05→17:39)
--- NOTE | 2019-04-23 10:30 | NUR ---
rounds Patient noted with 1 episode of loose BM. patient on lactulose. Skin care provided. Linens changed. Ice water refilled. No other needs at this time.
--- NOTE | 2019-04-23 11:05 | NUR ---
Nutrition F/U RD reviewed pt's current EMR including diet Hx, physician notes, nursing notes, pertinent labs/meds/procedures, care trends and care activity. Current Diet Order: [facility] diet x 0 day Subjective information: Pt seen sleeping in bed earlier today. Per RN report, pt just had small bowel follow through and awaiting physician orders. Pt remains to have negligible to poor PO intake per EMR and nursing staff report. Foster scale is trending down. Pt may benefit from ONS and texture modification for optimal nutrition. Current PO intake: 0% (04/22/2019); 25% average of 3 meals x 1 refusal 04/21 Estimated Energy Expenditure (kcals/day) 1610-1236 kcal/day (30-35 kcal/kg ABW for sepsis) Estimated Protein Required (g/day) 92-122 gm/day (1.5-2 gm/kg ABW for sepsis) Estimated Fluid Required (l/day) 1.8-2.2 L/day (25-30 ml/kg CBW for geriatric maintenance) Problem/Etiology/Signs/Symptoms Increased nutritional needs related to metabolic condition as evidenced by estimated nutritional needs for sepsis. *ongoing Inadequate nutrient intake r/t poor appetite and food-texture modification AEB PO intake meeting <75% and nursing staff report. *new Expected Outcomes/Goals - Monitor appetite and PO intake w/ goals of pt meeting greater than 75% of estimated nutritional needs, labs trending WNL, and skin integrity /wt maintenance. Dietitian Recommendations * Recommend [facility] standard carb-60 gm, mechanical soft diet w/ Glucerna TID (provides additional 660 kcal/day and 30 gm of protein/day) * Encourage PO intake. Follow Up High Risk: F/U in 2-3days
[2019-04-23 11:07] VITALS: BP_SYST 137
--- NOTE | 2019-04-23 11:10 | NUR ---
Dietitian Recommendations * Recommend [facility] standard carb-60 gm, mechanical soft diet w/ Glucerna TID (provides additional 660 kcal/day and 30 gm of protein/day) * Encourage PO intake. Please see Nutrition F/U note for details. FELA, RD
--- NOTE | 2019-04-23 12:25 | NUR ---
Lunch Patient sitting up in bed at this time, eating lunch. Tolerating well, no nausea, no vomiting.
--- NOTE | 2019-04-23 14:00 | NUR ---
rounds patient sitting up in bed at this time, no SOB. IV patent, intact, and infusing fluids as ordered. no complaints of abdominal pain. no nausea, no vomiting.
[2019-04-23 15:37] VITALS: BP_SYST 165
--- NOTE | 2019-04-23 16:00 | NUR ---
Skin care Skin care provided, linens changed. water pitcher refilled. No other needs at this time.
[2019-04-23 16:58] VITALS: BP_SYST 154
--- NOTE | 2019-04-23 18:53 | NUR ---
PT TRANSFERRED Report given to yong tapia [facility]. Transfer packet with Transfer Orders and Medication Reconciliation form given to EMT with report. Exitcare provided. [facility] ID band removed, replaced with ID band with pt's name and . IV catheter intact and no active bleeding. All belongings sent with patient. Patient left floor via gurney escorted by EMT in no distress.
[2019-04-23] MEDS ORDERED: ATORVASTATIN 10 MG TABLET PO SCH (21:00)
== END 2019-04-23 18:04 | DRG 871 ==
LOC: SED 13:56 → STU 17:58 → SMU 04-21 12:12 → STU 04-21 12:44 → SMU 04-21 12:44 → UNDODISIN 04-22 09:22
PROVIDERS: ADMIT Internal Medicine; ATTEND Internal Medicine
DX: A41.9 Sepsis, unspecified organism (principal); J18.9 Pneumonia, unspecified organism; G93.41 Metabolic encephalopathy; C34.90 Malignant neoplasm of unspecified part of unspecified bronchus or lung; C77.9 Secondary and unspecified malignant neoplasm of lymph node, unspecified; E87.1 Hypo-osmolality and hyponatremia; M48.50XA Collapsed vertebra, not elsewhere classified, site unspecified, initial encounter for fracture; E78.5 Hyperlipidemia, unspecified; E83.52 Hypercalcemia; I10 Essential (primary) hypertension; K56.41 Fecal impaction; K57.90 Diverticulosis of intestine, part unspecified, without perforation or abscess without bleeding; E11.40 Type 2 diabetes mellitus with diabetic neuropathy, unspecified; G89.4 Chronic pain syndrome; E87.6 Hypokalemia; M48.00 Spinal stenosis, site unspecified; R29.6 Repeated falls; Z87.891 Personal history of nicotine dependence; Z88.9 Allergy status to unspecified drugs, medicaments and biological substances; Z90.49 Acquired absence of other specified parts of digestive tract; Z90.710 Acquired absence of both cervix and uterus; Z99.3 Dependence on wheelchair; Z79.84 Long term (current) use of oral hypoglycemic drugs; Z79.899 Other long term (current) drug therapy; Z79.4 Long term (current) use of insulin; Z88.1 Allergy status to other antibiotic agents; Z88.8 Allergy status to other drugs, medicaments and biological substances
CPT/HCPCS: 36415; 70450-TC; 71045; 71260-TC; 74250-TC; 80048; 80053; 80202-TC; 81000-TC; 82962; 83605; 83735-TC; 84439; 84484; 85025; 85610-TC; 85730-TC; 86480; 86635; 86738; 87040-TC; 87086; 87449; 93005; 94640; 94760; 96361; 96365; 96375; 97110-GP; 97530-GP; 99285; G0378; J1815; J1940; J2248; J2270; J2405; J2765; J3370; J3480; J3490; J7030; J7050; J7620; Q0163; Q9963; Q9967

== ENCOUNTER 2019-05-25 14:27 | Inpatient (IN) | payer OTHER, MEDICARE ==
[~2019-05-25] VITALS: Ht 165.1 cm; Wt 69.4 kg
[~2019-05-25 14:27] MED LIST: BEN50 PO; GLUXR500 PO; HYDR-4274 PO; INSU100V9 SQ; LIP10 PO; LISI5TAB PO; MORP30TA PO; NEU300 PO; PARO-63 PO; VITA1CAP PO; ZOLP10TA2 PO
[2019-05-25 14:29] VITALS: BP_SYST 118
[2019-05-25] MEDS ORDERED: NACL 0.9% 2,000 ML IV ONE (14:32)
[2019-05-25] MEDS ORDERED: MEROPENEM 1 GM IVPB PREMIX 50 ML IV ONE (14:45)
[2019-05-25] MEDS ORDERED: cefTRIAXone 1 GM IVPB PREMIX 50 ML IV ONE (14:45)
[2019-05-25 15:17] LABS: BASOPHILS # (AUTO) 0.1 K/uL (0.0-0.2); BASOPHILS % (AUTO) 0.7 % (0.0-2.0); EOSINOPHILS % (AUTO) 0.2 % (0.0-4.0); HEMATOCRIT 33.8 % (36-48); HEMOGLOBIN 11.1 g/dL (12.0-16.0); LYMPHOCYTES # (AUTO) 0.6 K/uL (1.0-5.5); LYMPHOCYTES % (AUTO) 4.5 % (20.5-51.5); MEAN CORPUSCULAR HEMOGLOBIN 29 pg (27-31); MEAN CORPUSCULAR HGB CONC 33 % (32-36); MEAN CORPUSCULAR VOLUME 89 fL (79.0-98.0); MONOCYTES # (AUTO) 0.5 K/uL (0.0-1.0); MONOCYTES % (AUTO) 4.2 % (1.7-9.3); NEUTROPHILS # (AUTO) 11.4 K/uL (1.8-7.7); NEUTROPHILS % (AUTO) 90.4 % (40.0-70.0); PLATELET COUNT (AUTO) 599 K/uL (130-430); RED BLOOD CELL COUNT(AUTO) 3.79 MIL/uL (4.2-6.2); RED CELL DISTRIBUTION WIDTH 15.4 % (9.0-15.0); WHITE BLOOD COUNT (AUTO) 12.6 K/uL (4.8-10.8)
[2019-05-25 15:26] LABS: CALCIUM 10.1 mg/dL (8.4-11.0); CREATININE 0.61 mg/dL (0.55-1.30); POTASSIUM 3.8 mmol/L (3.5-5.1)
[2019-05-25 15:32] LABS: ALBUMIN 2.8 g/dL (3.4-4.8); TOTAL BILIRUBIN 0.4 mg/dL (0.0-1.0)
[2019-05-25] MEDS ORDERED: INSULIN REGULAR, HUMAN 100 UNITS/ML, 10 ML VIAL (humuLIN R) SUBCUT PRN (18:30)
[2019-05-25] MEDS ORDERED: ZOLPIDEM TARTRATE 5 MG TABLET PO PRN (18:30)
[2019-05-25] MEDS ORDERED: DEXTROSE 50% JECT 50 ML DISP.SYRIN IVP PRN ×2 (18:30)
[2019-05-25] MEDS ORDERED: ONDANSETRON HCL 4 MG/2 ML VIAL IVP PRN (18:45)
[2019-05-25] MEDS ORDERED: ACETAMINOPHEN 325 MG TABLET PO PRN (18:45)
[2019-05-25] MEDS ORDERED: OXYCODONE/ACETAMINOPHEN 5-325 TABLET PO PRN (18:45)
[2019-05-25] MEDS ORDERED: metFORMIN HCL 500 MG TABLET PO ONE (19:15)
[2019-05-25] MEDS: NACL 0.9% 1,000 ML IV SCH (20:05)
[2019-05-25] MEDS: CEFEPIME 1 GM in D5W 50 ML IV SCH (20:40)
[2019-05-25] MEDS ORDERED: MORPHINE SULFATE 30 MG Immediate Release TABLET PO SCH (21:00)
[2019-05-25] MEDS ORDERED: GABAPENTIN 300 MG CAPSULE PO SCH (21:00)
[2019-05-25] MEDS: DIPHENHYDRAMINE HCL 50 MG CAPSULE PO SCH (22:06)
[2019-05-25] MEDS: OSELTAMIVIR PHOSPHATE 75 MG CAPSULE PO SCH (22:07)
[2019-05-25] MEDS: MORPHINE SULFATE 30 MG TABLET.SA PO SCH (22:07)
[2019-05-25] MEDS: GABAPENTIN 300 MG CAPSULE PO SCH (22:07)
[2019-05-25] MEDS: ENOXAPARIN SODIUM 40 MG/0.4 ML SYRINGE SUBCUT SCH (22:09)
[2019-05-25] MEDS: INSULIN GLARGINE 100 UNITS/ML 10 ML VIAL SUBCUT SCH (22:11)
[2019-05-25] MEDS: VANCOMYCIN HCL 1,250 MG in NS 250 ML IV SCH (22:18)
[2019-05-26 01:48] VITALS: BP_SYST 132
[2019-05-26 02:11] VITALS: BP_SYST 128
[2019-05-26] MEDS ORDERED: ZOLPIDEM TARTRATE 5 MG TABLET PO ONE (02:30)
[2019-05-26] MEDS: OXYCODONE/ACETAMINOPHEN *10*mg/325 mg TABLET PO PRN (03:07)
[2019-05-26] MEDS: metFORMIN HCL 500 MG TABLET PO SCH ×2 (08:00→18:00)
[2019-05-26] MEDS: OSELTAMIVIR PHOSPHATE 75 MG CAPSULE PO SCH ×2 (09:00→21:00)
[2019-05-26] MEDS ORDERED: PARoxetine HCL 20 MG TABLET PO SCH (09:00)
[2019-05-26] MEDS: PARoxetine HCL 20 MG TABLET PO SCH (09:00)
[2019-05-26] MEDS: MORPHINE SULFATE 30 MG TABLET.SA PO SCH ×2 (09:00→21:00)
[2019-05-26] MEDS: GABAPENTIN 300 MG CAPSULE PO SCH ×4 (09:00→21:00)
[2019-05-26] MEDS: DIPHENHYDRAMINE HCL 50 MG CAPSULE PO SCH ×3 (09:00→21:00)
[2019-05-26] MEDS: CEFEPIME 1 GM in D5W 50 ML IV SCH ×2 (09:00→21:00)
[2019-05-26] MEDS: VITAMIN B COMPLEX 1 CAP/TAB PO SCH (10:00)
[2019-05-26] MEDS: NACL 0.9% 1,000 ML IV SCH (11:25)
[2019-05-26] MEDS: ATORVASTATIN 10 MG TABLET PO SCH (12:00)
[2019-05-26] MEDS: INSULIN GLARGINE 100 UNITS/ML 10 ML VIAL SUBCUT SCH (21:00)
[2019-05-26] MEDS: VANCOMYCIN HCL 1,250 MG in NS 250 ML IV SCH (21:00)
[2019-05-26] MEDS: ENOXAPARIN SODIUM 40 MG/0.4 ML SYRINGE SUBCUT SCH (21:00)
[2019-05-26] MEDS ORDERED: ZOLPIDEM TARTRATE 5 MG TABLET PO SCH (21:00)
[2019-05-26] MEDS ORDERED: VANCOMYCIN HCL 1000 MG/VIAL IV ONE (21:47)
[2019-05-26] MEDS ORDERED: CEFEPIME 1 GM/VIAL (MAXIPIME) ONE (21:47)
[2019-05-27] MEDS: NACL 0.9% 1,000 ML IV SCH ×2 (04:05→20:45)
[2019-05-27] MEDS: metFORMIN HCL 500 MG TABLET PO SCH ×2 (08:00→18:00)
[2019-05-27] MEDS: PARoxetine HCL 20 MG TABLET PO SCH (09:00)
[2019-05-27] MEDS: MORPHINE SULFATE 30 MG TABLET.SA PO SCH ×2 (09:00→21:00)
[2019-05-27] MEDS: DIPHENHYDRAMINE HCL 50 MG CAPSULE PO SCH ×3 (09:00→21:00)
[2019-05-27] MEDS: OSELTAMIVIR PHOSPHATE 75 MG CAPSULE PO SCH ×2 (09:00→21:00)
[2019-05-27] MEDS: GABAPENTIN 300 MG CAPSULE PO SCH ×4 (09:00→21:00)
[2019-05-27] MEDS: CEFEPIME 1 GM in D5W 50 ML IV SCH ×2 (09:00→21:00)
[2019-05-27] MEDS: VITAMIN B COMPLEX 1 CAP/TAB PO SCH (10:00)
[2019-05-27] MEDS: ATORVASTATIN 10 MG TABLET PO SCH (12:00)
[2019-05-27] MEDS: VANCOMYCIN HCL 1,250 MG in NS 250 ML IV SCH (21:00)
[2019-05-27] MEDS: INSULIN GLARGINE 100 UNITS/ML 10 ML VIAL SUBCUT SCH (21:00)
[2019-05-27] MEDS: ENOXAPARIN SODIUM 40 MG/0.4 ML SYRINGE SUBCUT SCH (21:00)
[2019-05-28 00:27] VITALS: BP_SYST 119
[2019-05-28 00:48] VITALS: BP_SYST 119
[2019-05-28] MEDS: IPRATROPIUM/ALBUTEROL SULFATE 3 ML AMPUL.NEB (DUONEB) INH SCH ×4 (07:39→18:15)
[2019-05-28 07:43] LABS: BASOPHILS # (AUTO) 0.1 K/uL (0.0-0.2); BASOPHILS % (AUTO) 0.7 % (0.0-2.0); EOSINOPHILS # (AUTO) 0.2 K/uL (0.0-0.4); EOSINOPHILS % (AUTO) 1.5 % (0.0-4.0); HEMATOCRIT 30.8 % (36-48); LYMPHOCYTES # (AUTO) 1.9 K/uL (1.0-5.5); LYMPHOCYTES % (AUTO) 12.8 % (20.5-51.5); MEAN CORPUSCULAR HEMOGLOBIN 29 pg (27-31); MEAN CORPUSCULAR HGB CONC 32 % (32-36); MEAN CORPUSCULAR VOLUME 91 fL (79.0-98.0); MONOCYTES # (AUTO) 1.5 K/uL (0.0-1.0); NEUTROPHILS # (AUTO) 11.3 K/uL (1.8-7.7); PLATELET COUNT (AUTO) 520 K/uL (130-430); RED CELL DISTRIBUTION WIDTH 16.2 % (9.0-15.0); WHITE BLOOD COUNT (AUTO) 15.1 K/uL (4.8-10.8)
[2019-05-28 08:18] LABS: POTASSIUM 4.1 mmol/L (3.5-5.1)
[2019-05-28 08:19] LABS: CREATININE 1.16 mg/dL (0.55-1.30)
[2019-05-28] MEDS: GABAPENTIN 300 MG CAPSULE PO SCH ×4 (09:48→21:00)
[2019-05-28] MEDS: DIPHENHYDRAMINE HCL 50 MG CAPSULE PO SCH ×4 (09:48→21:00)
[2019-05-28] MEDS: PARoxetine HCL 20 MG TABLET PO SCH (09:49)
[2019-05-28] MEDS: OSELTAMIVIR PHOSPHATE 75 MG CAPSULE PO SCH (09:49)
[2019-05-28] MEDS: metFORMIN HCL 500 MG TABLET PO SCH ×2 (09:49→17:29)
[2019-05-28] MEDS: MORPHINE SULFATE 30 MG TABLET.SA PO SCH (09:50)
[2019-05-28] MEDS: VITAMIN B COMPLEX 1 CAP/TAB PO SCH (09:50)
[2019-05-28] MEDS: CEFEPIME 1 GM in D5W 50 ML IV SCH ×2 (09:57→20:53)
[2019-05-28 12:00] VITALS: BP_SYST 128
[2019-05-28] MEDS: ATORVASTATIN 10 MG TABLET PO SCH (12:24)
[2019-05-28] MEDS: INSULIN REGULAR, HUMAN 100 UNITS/ML, 10 ML VIAL (humuLIN R) SUBCUT PRN ×2 (12:24→21:15)
[2019-05-28] MEDS: NACL 0.9% 1,000 ML IV SCH (12:31)
[2019-05-28 16:52] VITALS: BP_SYST 129
[2019-05-28] MEDS ORDERED: FUROSEMIDE 40 MG/4 ML VIAL ONE (18:28)
[2019-05-28] MEDS ORDERED: NALOXONE HCL 0.4 MG/ML AMP (NARCAN) IVP ONE (18:30)
[2019-05-28] MEDS ORDERED: FUROSEMIDE 40 MG/4 ML VIAL IVP ONE (18:30)
[2019-05-28 19:17] LABS: BASOPHILS # (AUTO) 0.1 K/uL (0.0-0.2); BASOPHILS % (AUTO) 0.6 % (0.0-2.0); EOSINOPHILS # (AUTO) 0.1 K/uL (0.0-0.4); EOSINOPHILS % (AUTO) 0.9 % (0.0-4.0); HEMATOCRIT 31.8 % (36-48); HEMOGLOBIN 10.3 g/dL (12.0-16.0); LYMPHOCYTES # (AUTO) 1.9 K/uL (1.0-5.5); LYMPHOCYTES % (AUTO) 12.7 % (20.5-51.5); MEAN CORPUSCULAR HEMOGLOBIN 30 pg (27-31); MEAN CORPUSCULAR HGB CONC 33 % (32-36); MEAN CORPUSCULAR VOLUME 91 fL (79.0-98.0); MONOCYTES # (AUTO) 1.5 K/uL (0.0-1.0); NEUTROPHILS # (AUTO) 11.5 K/uL (1.8-7.7); NEUTROPHILS % (AUTO) 75.8 % (40.0-70.0); PLATELET COUNT (AUTO) 549 K/uL (130-430); RED BLOOD CELL COUNT(AUTO) 3.51 MIL/uL (4.2-6.2); RED CELL DISTRIBUTION WIDTH 15.5 % (9.0-15.0); WHITE BLOOD COUNT (AUTO) 15.2 K/uL (4.8-10.8)
[2019-05-28 19:36] LABS: CALCIUM 7.3 mg/dL (8.4-11.0); CREATININE 1.78 mg/dL (0.55-1.30); POTASSIUM 4.1 mmol/L (3.5-5.1)
[2019-05-28 19:43] LABS: ALBUMIN 2.6 g/dL (3.4-4.8); TOTAL BILIRUBIN 0.3 mg/dL (0.0-1.0)
[2019-05-28] MEDS: ENOXAPARIN SODIUM 40 MG/0.4 ML SYRINGE SUBCUT SCH (20:52)
[2019-05-28] MEDS: metroNIDAZOLE 500 mg/NS 100 ML IV SCH (20:52)
[2019-05-28] MEDS: VANCOMYCIN HCL 1,250 MG in NS 250 ML IV SCH (20:53)
[2019-05-28] MEDS: INSULIN GLARGINE 100 UNITS/ML 10 ML VIAL SUBCUT SCH (21:14)
[2019-05-28] MEDS ORDERED: SODIUM BICARBONATE 8.4% JECT 100 MEQ in D5W 1,000 ML IV SCH (22:00)
[2019-05-28] MEDS ORDERED: SODIUM BICARBONATE 8.4% JECT 50 MEQ/50 ML SYRINGE IVP ONE ×2 (22:00)
[2019-05-29] VITALS (21 sets, daily range): BP systolic 66–115
[2019-05-29 06:11] LABS: BASOPHILS # (AUTO) 0.1 K/uL (0.0-0.2); BASOPHILS % (AUTO) 0.6 % (0.0-2.0); EOSINOPHILS % (AUTO) 0.1 % (0.0-4.0); HEMATOCRIT 32.3 % (36-48); HEMOGLOBIN 10.5 g/dL (12.0-16.0); MEAN CORPUSCULAR HEMOGLOBIN 30 pg (27-31); MEAN CORPUSCULAR HGB CONC 33 % (32-36); MEAN CORPUSCULAR VOLUME 90 fL (79.0-98.0); MONOCYTES # (AUTO) 1.4 K/uL (0.0-1.0); MONOCYTES % (AUTO) 8.6 % (1.7-9.3); NEUTROPHILS # (AUTO) 13.8 K/uL (1.8-7.7); NEUTROPHILS % (AUTO) 84.7 % (40.0-70.0); PLATELET COUNT (AUTO) 523 K/uL (130-430); RED BLOOD CELL COUNT(AUTO) 3.57 MIL/uL (4.2-6.2); RED CELL DISTRIBUTION WIDTH 15.9 % (9.0-15.0); WHITE BLOOD COUNT (AUTO) 16.3 K/uL (4.8-10.8)
[2019-05-29 06:25] LABS: CREATININE 2.11 mg/dL (0.55-1.30); PHOSPHORUS 5.3 mg/dL (2.7-4.5); POTASSIUM 3.8 mmol/L (3.5-5.1)
[2019-05-29] MEDS: INSULIN REGULAR, HUMAN 100 UNITS/ML, 10 ML VIAL (humuLIN R) SUBCUT PRN ×2 (06:37→21:53)
[2019-05-29 06:47] LABS: CALCIUM 6.9 mg/dL (8.4-11.0)
[2019-05-29] MEDS ORDERED: NS 500 ML IV ONE (07:45)
[2019-05-29] MEDS ORDERED: NACL 0.9% 1,000 ML IV ONE (07:59)
[2019-05-29] MEDS ORDERED: CALCIUM CHLORIDE 1 GM in NS 100 ML IV ONE ×2 (08:00→10:00)
[2019-05-29] MEDS ORDERED: DEXAMETHASONE SOD PHOSPHATE 4 MG/ML VIAL IVP ONE (08:00)
[2019-05-29] MEDS: DIPHENHYDRAMINE HCL 50 MG CAPSULE PO SCH ×3 (09:00→21:29)
[2019-05-29] MEDS: CEFEPIME 1 GM in D5W 50 ML IV SCH ×2 (09:14→21:28)
[2019-05-29] MEDS: NACL 0.9% 1,000 ML IV SCH ×2 (09:20→17:07)
[2019-05-29] MEDS ORDERED: CHOLECALCIFEROL (VITAMIN D3) 2,000 UNIT TABLET PO ONE (10:00)
[2019-05-29] MEDS: metroNIDAZOLE 500 mg/NS 100 ML IV SCH ×2 (11:17→21:27)
[2019-05-29] MEDS: GABAPENTIN 300 MG CAPSULE PO SCH ×4 (11:18→21:29)
[2019-05-29] MEDS: VITAMIN B COMPLEX 1 CAP/TAB PO SCH (11:18)
[2019-05-29] MEDS: PARoxetine HCL 20 MG TABLET PO SCH (11:18)
[2019-05-29] MEDS: ATORVASTATIN 10 MG TABLET PO SCH (11:30)
[2019-05-29] MEDS: DEXAMETHASONE SOD PHOSPHATE 4 MG/ML VIAL IVP SCH ×2 (11:30→17:08)
[2019-05-29] MEDS: CALCIUM CARBONATE 500 MG/ TAB.CHEW PO SCH ×3 (11:44→21:29)
[2019-05-29] MEDS: IPRATROPIUM/ALBUTEROL SULFATE 3 ML AMPUL.NEB (DUONEB) INH SCH ×3 (13:39→19:53)
[2019-05-29] MEDS ORDERED: ETOMIDATE 20 MG/ 10 ML VIAL (AMIDATE) IVP ONE (14:42)
[2019-05-29] MEDS: LORazepam 2 MG/ML VIAL IVP PRN (18:42)
[2019-05-29] MEDS: VANCOMYCIN HCL 1,000 MG in NS 250 ML IV SCH ×2 (21:00→22:03)
[2019-05-29] MEDS: ENOXAPARIN SODIUM 40 MG/0.4 ML SYRINGE SUBCUT SCH (21:30)
[2019-05-29] MEDS: INSULIN GLARGINE 100 UNITS/ML 10 ML VIAL SUBCUT SCH (21:56)
[2019-05-30] VITALS (12 sets, daily range): BP systolic 97–137
[2019-05-30] MEDS: DEXAMETHASONE SOD PHOSPHATE 4 MG/ML VIAL IVP SCH ×4 (00:15→17:54)
[2019-05-30] MEDS: LORazepam 2 MG/ML VIAL IVP PRN ×4 (03:59→17:53)
[2019-05-30] MEDS: NACL 0.9% 1,000 ML IV SCH ×2 (05:45→09:17)
[2019-05-30 05:59] LABS: BASOPHILS % (AUTO) 0.1 % (0.0-2.0); HEMATOCRIT 26.8 % (36-48); HEMOGLOBIN 8.9 g/dL (12.0-16.0); LYMPHOCYTES # (AUTO) 0.8 K/uL (1.0-5.5); LYMPHOCYTES % (AUTO) 7.6 % (20.5-51.5); MEAN CORPUSCULAR HEMOGLOBIN 30 pg (27-31); MEAN CORPUSCULAR HGB CONC 33 % (32-36); MEAN CORPUSCULAR VOLUME 89 fL (79.0-98.0); MONOCYTES # (AUTO) 0.3 K/uL (0.0-1.0); NEUTROPHILS # (AUTO) 8.9 K/uL (1.8-7.7); NEUTROPHILS % (AUTO) 89.3 % (40.0-70.0); PLATELET COUNT (AUTO) 459 K/uL (130-430); RED BLOOD CELL COUNT(AUTO) 3.01 MIL/uL (4.2-6.2); RED CELL DISTRIBUTION WIDTH 15.7 % (9.0-15.0); WHITE BLOOD COUNT (AUTO) 9.9 K/uL (4.8-10.8)
[2019-05-30 06:07] LABS: ALBUMIN 1.8 g/dL (3.4-4.8); CREATININE 2.74 mg/dL (0.55-1.30); POTASSIUM 4.1 mmol/L (3.5-5.1); TOTAL BILIRUBIN 0.3 mg/dL (0.0-1.0)
[2019-05-30 06:31] LABS: CALCIUM 6.4 mg/dL (8.4-11.0)
[2019-05-30] MEDS: IPRATROPIUM/ALBUTEROL SULFATE 3 ML AMPUL.NEB (DUONEB) INH SCH ×4 (07:43→19:46)
[2019-05-30] MEDS: CEFEPIME 1 GM in D5W 50 ML IV SCH (08:26)
[2019-05-30] MEDS: CALCIUM CARBONATE 500 MG/ TAB.CHEW PO SCH ×4 (08:26→21:26)
[2019-05-30] MEDS: GABAPENTIN 300 MG CAPSULE PO SCH ×4 (08:27→21:03)
[2019-05-30] MEDS: CHOLECALCIFEROL (VITAMIN D3) 2,000 UNIT TABLET PO SCH (08:27)
[2019-05-30] MEDS: PARoxetine HCL 20 MG TABLET PO SCH (08:27)
[2019-05-30] MEDS: metroNIDAZOLE 500 mg/NS 100 ML IV SCH ×2 (09:17→21:00)
[2019-05-30] MEDS ORDERED: CALCIUM GLUCONATE 1 GM in NS 100 ML IV ONE (10:30)
[2019-05-30] MEDS: ATORVASTATIN 10 MG TABLET PO SCH (11:06)
[2019-05-30] MEDS: DIPHENHYDRAMINE HCL 50 MG CAPSULE PO SCH ×3 (11:06→21:03)
[2019-05-30] MEDS: VITAMIN B COMPLEX 1 CAP/TAB PO SCH (11:06)
[2019-05-30] MEDS ORDERED: LIDOCAINE 2%, 20 ML MDV ONE (15:10)
[2019-05-30] MEDS ORDERED: LORazepam 2 MG/ML VIAL ONE (15:14)
[2019-05-30] MEDS ORDERED: HEPARIN SODIUM,PORCINE 5000 UNITS/ML VIAL ONE ×2 (15:53→23:21)
[2019-05-30] MEDS: MENTHOL/ZINC OXIDE 113 GM OINT. TP PRN (16:14)
[2019-05-30] MEDS: BALSAM PERU/CASTOR OIL 60 GM OINT...G. TP SCH (16:14)
[2019-05-30] MEDS: INSULIN REGULAR, HUMAN 100 UNITS/ML, 10 ML VIAL (humuLIN R) SUBCUT PRN ×2 (17:03→22:00)
[2019-05-30] MEDS: IPRATROPIUM/ALBUTEROL SULFATE 3 ML AMPUL.NEB (DUONEB) INH PRN (17:27)
[2019-05-30] MEDS: INSULIN GLARGINE 100 UNITS/ML 10 ML VIAL SUBCUT SCH (21:17)
[2019-05-30] MEDS: ENOXAPARIN SODIUM 40 MG/0.4 ML SYRINGE SUBCUT SCH (21:24)
[2019-05-30 22:46] LABS: INR 3.4 (0.8-1.2); PROTHROMBIN TIME 33.9 SECS (9.5-12.5)
[2019-05-31] VITALS (30 sets, daily range): BP systolic 106–177
[2019-05-31] MEDS ORDERED: PHYTONADIONE 10 MG/ML AMP ONE (00:05)
[2019-05-31] MEDS: DEXAMETHASONE SOD PHOSPHATE 4 MG/ML VIAL IVP SCH ×4 (00:10→17:22)
[2019-05-31] MEDS: CEFEPIME 1 GM in D5W 50 ML IV SCH ×3 (00:39→21:00)
[2019-05-31] MEDS: LINEZOLID 300 ML IV SCH ×3 (00:41→21:00)
[2019-05-31] MEDS: OXYCODONE/ACETAMINOPHEN *10*mg/325 mg TABLET PO PRN ×2 (02:04→06:05)
[2019-05-31] MEDS: IPRATROPIUM/ALBUTEROL SULFATE 3 ML AMPUL.NEB (DUONEB) INH PRN (05:11)
[2019-05-31] MEDS: LORazepam 2 MG/ML VIAL IVP PRN ×2 (05:21→21:10)
[2019-05-31 05:52] LABS: BASOPHILS # (AUTO) 0.1 K/uL (0.0-0.2); BASOPHILS % (AUTO) 0.7 % (0.0-2.0); HEMATOCRIT 28.7 % (36-48); HEMOGLOBIN 9.4 g/dL (12.0-16.0); LYMPHOCYTES # (AUTO) 0.6 K/uL (1.0-5.5); LYMPHOCYTES % (AUTO) 4.3 % (20.5-51.5); MEAN CORPUSCULAR HEMOGLOBIN 29 pg (27-31); MEAN CORPUSCULAR HGB CONC 33 % (32-36); MEAN CORPUSCULAR VOLUME 89 fL (79.0-98.0); MONOCYTES # (AUTO) 0.7 K/uL (0.0-1.0); MONOCYTES % (AUTO) 5.1 % (1.7-9.3); NEUTROPHILS # (AUTO) 11.8 K/uL (1.8-7.7); NEUTROPHILS % (AUTO) 89.9 % (40.0-70.0); PLATELET COUNT (AUTO) 582 K/uL (130-430); RED BLOOD CELL COUNT(AUTO) 3.22 MIL/uL (4.2-6.2); RED CELL DISTRIBUTION WIDTH 15.8 % (9.0-15.0); WHITE BLOOD COUNT (AUTO) 13.1 K/uL (4.8-10.8)
[2019-05-31 06:15] LABS: ALBUMIN 2.4 g/dL (3.4-4.8); CALCIUM 7.9 mg/dL (8.4-11.0); CREATININE 2.35 mg/dL (0.55-1.30); POTASSIUM 3.9 mmol/L (3.5-5.1); TOTAL BILIRUBIN 0.3 mg/dL (0.0-1.0)
[2019-05-31] MEDS: INSULIN REGULAR, HUMAN 100 UNITS/ML, 10 ML VIAL (humuLIN R) SUBCUT PRN ×2 (06:52→12:05)
[2019-05-31] MEDS: IPRATROPIUM/ALBUTEROL SULFATE 3 ML AMPUL.NEB (DUONEB) INH SCH ×3 (07:40→15:16)
[2019-05-31] MEDS: metroNIDAZOLE 500 mg/NS 100 ML IV SCH ×2 (08:43→21:00)
[2019-05-31] MEDS: MENTHOL/ZINC OXIDE 113 GM OINT. TP PRN (09:27)
[2019-05-31] MEDS: VITAMIN B COMPLEX 1 CAP/TAB PO SCH (09:28)
[2019-05-31] MEDS: GABAPENTIN 300 MG CAPSULE PO SCH ×4 (09:28→21:00)
[2019-05-31] MEDS: CALCIUM CARBONATE 500 MG/ TAB.CHEW PO SCH ×4 (09:28→21:00)
[2019-05-31] MEDS: CHOLECALCIFEROL (VITAMIN D3) 2,000 UNIT TABLET PO SCH (09:28)
[2019-05-31] MEDS: PARoxetine HCL 20 MG TABLET PO SCH (09:28)
[2019-05-31] MEDS: BALSAM PERU/CASTOR OIL 60 GM OINT...G. TP SCH (09:29)
[2019-05-31] MEDS: DIPHENHYDRAMINE HCL 50 MG CAPSULE PO SCH ×3 (09:29→21:00)
[2019-05-31 10:16] LABS: INR 1.3 (0.8-1.2); PROTHROMBIN TIME 13.4 SECS (9.5-12.5)
[2019-05-31] MEDS ORDERED: MORPHINE 2 MG/ML INJ. SYRINGE IVP PRN (10:30)
[2019-05-31] MEDS ORDERED: IOHEXOL 350 mgI/mL, 150 ML INFUS..BTL IV ONE (10:51)
[2019-05-31] MEDS: ATORVASTATIN 10 MG TABLET PO SCH (11:59)
[2019-05-31] MEDS ORDERED: MORPHINE 4 MG/ML INJ. SYRINGE IVP ONE ×2 (17:30→19:45)
[2019-05-31] MEDS ORDERED: MORPHINE I.V. DRIP 100 ML IV PRN ×2 (17:30→18:30)
[2019-05-31] MEDS ORDERED: COMMUNICATION ORDER XX ONE (18:00)
[2019-05-31] MEDS: SODIUM CHLORIDE IV PRN (20:44)
[2019-05-31] MEDS: MORPHINE IV PRN (20:44)
[2019-05-31] MEDS: INSULIN GLARGINE 100 UNITS/ML 10 ML VIAL SUBCUT SCH (21:00)
[2019-05-31] MEDS: ENOXAPARIN SODIUM 40 MG/0.4 ML SYRINGE SUBCUT SCH (21:00)
[2019-06-01] VITALS (7 sets, daily range): BP systolic 79–135
[2019-06-01 03:09] LABS: HEPATITIS A AB, IgM Negative (Negative); HEPATITIS B CORE AB, IgM Negative (Negative); HEPATITIS B SURFACE AG Negative (Negative)
[2019-06-01] MEDS: MORPHINE IV PRN (04:35)
[2019-06-01] MEDS: SODIUM CHLORIDE IV PRN (04:35)
[2019-06-01] MEDS: DEXAMETHASONE SOD PHOSPHATE 4 MG/ML VIAL IVP SCH ×2 (06:00)
[2019-06-07 10:11] LABS: BILIRUBIN,URINE NEGATIVE (NEGATIVE); BLOOD, URINE NEGATIVE (NEGATIVE); CLARITY/URINE CLEAR (CLEAR); COLOR,URINE YELLOW (YELLOW); GLUCOSE,URINE NEGATIVE (NEGATIVE); KETONES,URINE NEGATIVE (NEGATIVE); LEUKOCYTE ESTERASE ,URINE NEGATIVE (NEGATIVE); NITRITE, URINE NEGATIVE (NEGATIVE); PROTEIN URINE NEGATIVE (NEGATIVE); UROBILINOGEN,URINE 0.2 (0.2-1.0)
[2019-06-07 10:12] LABS: CALCIUM 8.6 mg/dL (8.4-11.0); POTASSIUM 3.6 mmol/L (3.5-5.1)
[2019-06-07 10:13] LABS: ALBUMIN 2.5 g/dL (3.4-4.8); CREATININE 0.61 mg/dL (0.55-1.30); TOTAL BILIRUBIN 0.3 mg/dL (0.0-1.0)
[2019-06-17 14:00] LABS: POTASSIUM 3.6 mmol/L (3.5-5.1)
[2019-06-17 14:01] LABS: ALBUMIN 2.7 g/dL (3.4-4.8); CALCIUM 8.1 mg/dL (8.4-11.0); CREATININE 0.82 mg/dL (0.55-1.30); TOTAL BILIRUBIN 0.4 mg/dL (0.0-1.0)
[2019-06-17 14:02] LABS: HEMATOCRIT 30.9 % (36-48); HEMOGLOBIN 10.1 g/dL (12.0-16.0); MEAN CORPUSCULAR HEMOGLOBIN 29 pg (27-31); MEAN CORPUSCULAR HGB CONC 33 % (32-36); MEAN CORPUSCULAR VOLUME 89 fL (79.0-98.0); RED BLOOD CELL COUNT(AUTO) 3.45 MIL/uL (4.2-6.2); WHITE BLOOD COUNT (AUTO) 20.7 K/uL (4.8-10.8)
[2019-06-17 14:03] LABS: BASOPHILS # (AUTO) 0.1 K/uL (0.0-0.2); BASOPHILS % (AUTO) 0.6 % (0.0-2.0); EOSINOPHILS % (AUTO) 0.1 % (0.0-4.0); LYMPHOCYTES # (AUTO) 2.2 K/uL (1.0-5.5); LYMPHOCYTES % (AUTO) 10.6 % (20.5-51.5); MONOCYTES # (AUTO) 1.7 K/uL (0.0-1.0); MONOCYTES % (AUTO) 8.3 % (1.7-9.3); NEUTROPHILS # (AUTO) 16.7 K/uL (1.8-7.7); NEUTROPHILS % (AUTO) 80.4 % (40.0-70.0); PLATELET COUNT (AUTO) 464 K/uL (130-430); RED CELL DISTRIBUTION WIDTH 15.6 % (9.0-15.0)
== END 2019-06-01 09:10 | disposition expired | DRG 871 ==
LOC: SED 14:27 → STU 17:06 → SIC 05-28 19:26
PROVIDERS: ADMIT Internal Medicine; ATTEND Internal Medicine
PROC: 5A09357 Assistance with Respiratory Ventilation, Less than 24 Consecutive Hours, Continuous Positive Airway Pressure (ICD-10-PCS; 2019-05-28)
PROC: 5A1945Z Respiratory Ventilation, 24-96 Consecutive Hours (ICD-10-PCS; 2019-05-29)
PROC: 0BH17EZ Insertion of Endotracheal Airway into Trachea, Via Natural or Artificial Opening (ICD-10-PCS; 2019-05-29)
PROC: 06HN33Z Insertion of Infusion Device into Left Femoral Vein, Percutaneous Approach (ICD-10-PCS; principal; 2019-05-30)
PROC: 02HV33Z Insertion of Infusion Device into Superior Vena Cava, Percutaneous Approach (ICD-10-PCS; 2019-05-30)
PROC: B548ZZA Ultrasonography of Superior Vena Cava, Guidance (ICD-10-PCS; 2019-05-30)
DX: A41.9 Sepsis, unspecified organism (principal); J18.9 Pneumonia, unspecified organism; J96.01 Acute respiratory failure with hypoxia; N17.0 Acute kidney failure with tubular necrosis; E87.1 Hypo-osmolality and hyponatremia; G93.40 Encephalopathy, unspecified; J44.0 Chronic obstructive pulmonary disease with (acute) lower respiratory infection; J44.1 Chronic obstructive pulmonary disease with (acute) exacerbation; E87.2 Acidosis; C34.11 Malignant neoplasm of upper lobe, right bronchus or lung; C34.31 Malignant neoplasm of lower lobe, right bronchus or lung; E87.4 Mixed disorder of acid-base balance; E66.9 Obesity, unspecified; E78.5 Hyperlipidemia, unspecified; E83.51 Hypocalcemia; E87.5 Hyperkalemia; G89.4 Chronic pain syndrome; F32.9 Major depressive disorder, single episode, unspecified; E11.40 Type 2 diabetes mellitus with diabetic neuropathy, unspecified; I10 Essential (primary) hypertension; Z87.891 Personal history of nicotine dependence; Z90.710 Acquired absence of both cervix and uterus; Z88.8 Allergy status to other drugs, medicaments and biological substances; Z88.1 Allergy status to other antibiotic agents; Z79.899 Other long term (current) drug therapy; Z79.4 Long term (current) use of insulin; Z88.0 Allergy status to penicillin; Z90.49 Acquired absence of other specified parts of digestive tract; Z92.21 Personal history of antineoplastic chemotherapy
CPT/HCPCS: 36415; 36600; 70450-TC; 71045; 71250-TC; 71275; 80048; 80053; 80074; 80202-TC; 81003; 82009-TC; 82140-TC; 82803-TC; 82962; 83010; 83605; 83615-TC; 83735-TC; 83880; 84100-TC; 84484; 85025; 85044-TC; 85384-TC; 85610-TC; 85730-TC; 86710; 87040-TC; 87070-TC; 87081; 87086; 87205-TC; 90935; 93005; 94002; 94003; 94640; 94660; 94760; 96361; 96365; 96368; 97110-GP; 97530-GP; 99285; C1751; G0378; G9035; J0610; J0692; J0696; J1100; J1644; J1650; J1815; J1940; J2001; J2020; J2060; J2185; J2270; J2274; J2310; J3370; J3430; J3490; J7030; J7040; J7050; J7060; J7620; Q0163; Q9967